=== PATIENT | male | born 1950 | race Caucasian/White ===

== ENCOUNTER 2024-11-17 08:35 | Observation (INO) | payer OTHER ==
[2024-11-17 08:48] VITALS: BMI 28.3
[2024-11-17 09:36] LABS: HEMATOCRIT 24.4 % (40.1-51.0); MCHC 32.8 g/dl (32.3-36.5); MEAN CELL VOLUME 98.8 fl (79.0-92.2); MEAN PLT VOLUME 9.1 fl (9.4-12.4); PLATELET COUNT 271 x10^3/uL (163-337); RDW 15.4 % (12.2-16.6)
[2024-11-17 09:47] LABS: INR 1.61 (0.83-1.09); PROTHROMBIN TIME (PATIENT) 17.6 SEC (9.7-13.0)
[2024-11-17 10:24] LABS: POTASSIUM 4.2 mmol/L (3.5-5.1)
[2024-11-17 10:26] LABS: ALBUMIN 2.5 g/dl (3.4-5.0); CALCIUM 8.1 mg/dL (8.5-10.1)
[2024-11-17 10:32] LABS: TOT PROT 6.6 g/dl (6.4-8.2)
[2024-11-17] MEDS: ATORVASTATIN CA 10 MG TABLET (FP) PO SCH (21:04)
[2024-11-17] MEDS: PANTOPRAZOLE SODIUM 40 MG VIAL IVPUSH SCH (21:04)
[2024-11-17] MEDS: TIMOLOL 0.5% OPHTHALMIC SOL 5 ML BOTTLE OU SCH (21:05)
[2024-11-17] MEDS: LATANOPROST 0.005% OPHTH SOLN 2.5ML BOTTLE OU SCH (21:05)
[2024-11-18 08:37] LABS: POTASSIUM 4.2 mmol/L (3.5-5.1)
[2024-11-18 08:40] LABS: BLOOD UREA NITROGEN 20.8 mg/dL (7-18); MAGNESIUM 1.9 mg/dL (1.8-2.4)
[2024-11-18 08:43] LABS: CREATININE 0.9 mg/dL (0.55-1.3); PHOSPHOROUS 3.2 mg/dL (2.5-4.9)
[2024-11-18 09:26] LABS: HEMATOCRIT 25.9 % (40.1-51.0); HEMOGLOBIN 8.4 g/dL (13.7-17.5); MCHC 32.4 g/dl (32.3-36.5); MEAN PLT VOLUME 9.8 fl (9.4-12.4); PLATELET COUNT 219 x10^3/uL (163-337)
[2024-11-18] MEDS: PEG 3350/NA SULF BICARB CL/KCL 4000 ML SOLN.RECON PO ONE (14:56)
[2024-11-18] MEDS: BISACODYL 5 MG TABLET.DR (FP) PO ONE (15:51)
[2024-11-19 09:39] VITALS: RESP 18
[2024-11-19 11:44] LABS: ABSOLUTE IMMATURE GRANULOCYTES 0.02 x10^3/uL (0.0-0.031); EOSINOPHIL % 0.9 % (0.8-7.0); EOSINOPHILS # 0.04 x10^3/uL (0.04-0.54); HEMATOCRIT 25.3 % (40.1-51.0); HEMOGLOBIN 8.3 g/dL (13.7-17.5); MCHC 32.8 g/dl (32.3-36.5); MEAN CELL VOLUME 96.9 fl (79.0-92.2); MEAN PLT VOLUME 9.2 fl (9.4-12.4); MONOCYTE # 0.02 x10^3/uL (0.30-0.82); MONOCYTE % 0.5 % (5.3-12.2); PLATELET COUNT 258 x10^3/uL (163-337); RDW 15.6 % (12.2-16.6)
[2024-11-19 11:47] LABS: ABSOLUTE IMMATURE GRANULOCYTES 0.03 x10^3/uL (0.0-0.031); BASOPHILS # 0.01 x10^3/uL (0.01-0.08); EOSINOPHILS # 0.04 x10^3/uL (0.04-0.54); HEMATOCRIT 25.1 % (40.1-51.0); HEMOGLOBIN 8.1 g/dL (13.7-17.5); MCHC 32.3 g/dl (32.3-36.5); MEAN CELL VOLUME 96.9 fl (79.0-92.2); MONOCYTE # 0.02 x10^3/uL (0.30-0.82); MONOCYTE % 0.5 % (5.3-12.2); PLATELET COUNT 253 x10^3/uL (163-337); RDW 15.7 % (12.2-16.6); Reticulocyte % 3.46 % (0.51-1.81)
[2024-11-19 11:51] LABS: INR 1.53 (0.83-1.09); PROTHROMBIN TIME (PATIENT) 16.7 SEC (9.7-13.0)
[2024-11-19] MEDS: IRON SUCROSE INJECTION 200 MG in SODIUM CHLORIDE 100 ML IVPB ONE (11:59)
[2024-11-19] MEDS: MAG HYDROX/AL HYDROX/SIMETH 30 ML UNIT-DOSE CUP PO SCH (11:59)
[2024-11-19 12:13] LABS: POTASSIUM 3.9 mmol/L (3.5-5.1)
[2024-11-19 12:16] LABS: ALBUMIN 2.2 g/dl (3.4-5.0); BLOOD UREA NITROGEN 16.5 mg/dL (7-18); CALCIUM 8.1 mg/dL (8.5-10.1)
[2024-11-19 12:20] LABS: CREATININE 0.9 mg/dL (0.55-1.3)
[2024-11-19 12:21] LABS: BILIRUBIN,TOTAL 1.7 mg/dL (0.2-1); TOT PROT 6.2 g/dl (6.4-8.2)
[2024-11-19 13:32] VITALS: BP 107/56; PULSE 81; TEMP 98.8
[2024-11-19] MEDS ORDERED: PANTOPRAZOLE 40 MG TABLET PO SCH (22:00)
== END 2024-11-19 14:12 | disposition home or self-care (01) ==
LOC: JER 08:35 → JERBED 11:00 → INTOOBSV 11:00 → UNDOADMOB 11:00 → J5S 12:45 → JERBED 12:45 → J5S 14:17 → JERBED 14:17
PROVIDERS: ADMIT Student in an Organized Health Care Education/Training Program; ATTEND Internal Medicine
PROC: 30233N1 Transfusion of Nonautologous Red Blood Cells into Peripheral Vein, Percutaneous Approach (ICD-10-PCS; principal; 2024-11-17)
PROC: 0DB98ZX Excision of Duodenum, Via Natural or Artificial Opening Endoscopic, Diagnostic (ICD-10-PCS; 2024-11-17)
PROC: 0DB78ZX Excision of Stomach, Pylorus, Via Natural or Artificial Opening Endoscopic, Diagnostic (ICD-10-PCS; 2024-11-17)
PROC: 0DB58ZX Excision of Esophagus, Via Natural or Artificial Opening Endoscopic, Diagnostic (ICD-10-PCS; 2024-11-17)
PROC: 3E033GC Introduction of Other Therapeutic Substance into Peripheral Vein, Percutaneous Approach (ICD-10-PCS; 2024-11-17)
DX: K25.4 Chronic or unspecified gastric ulcer with hemorrhage (principal); D50.0 Iron deficiency anemia secondary to blood loss (chronic); I10 Essential (primary) hypertension; E78.5 Hyperlipidemia, unspecified; I48.91 Unspecified atrial fibrillation; Z79.01 Long term (current) use of anticoagulants; Z87.891 Personal history of nicotine dependence; D72.819 Decreased white blood cell count, unspecified
CPT/HCPCS: 36415; 36430; 71045-TC-FY; 80048; 80053; 82728; 82941; 83010; 83540; 83550; 83735; 84100; 85025; 85027; 85610; 86850; 86900; 86901; 86922; 88305-TC; 88342-TC; 93005; 93010; 99285-25; G0378; J1756; P9038; P9058